=== PATIENT | female | born 1970 | race Caucasian/White ===

== ENCOUNTER 2019-06-19 13:30 | Outpatient (RCR) | payer MEDICARE, MEDICAID | END 2019-06-23 | disposition home or self-care (01) | LOC: WSC | DX: M48.061 Spinal stenosis, lumbar region without neurogenic claudication (principal); M54.16 Radiculopathy, lumbar region ==

== ENCOUNTER 2020-10-10 13:15 | Outpatient (RCR) | payer MEDICARE, MEDICAID | END 2020-10-11 | disposition still patient (30) | LOC: WSPT | DX: G43.009 Migraine without aura, not intractable, without status migrainosus (principal); F41.8 Other specified anxiety disorders; M62.838 Other muscle spasm; M54.9 Dorsalgia, unspecified ==

== ENCOUNTER 2020-10-12 14:50 | Outpatient (RCR) | payer MEDICARE, MEDICAID | END 2020-11-07 11:02 | disposition still patient (30) | LOC: WSPT 14:50 | DX: G43.009 Migraine without aura, not intractable, without status migrainosus (principal); F41.8 Other specified anxiety disorders; M62.838 Other muscle spasm ==